=== PATIENT | female | born 1980 | race Two or more races ===

== ENCOUNTER → 2018-10-12 | Outpatient (CLI) | payer MEDICAID | END | disposition home or self-care (01) | LOC: Rad HDHVI 15:15 | PROVIDERS: ATTEND Internal Medicine | DX: I11.0 Hypertensive heart disease with heart failure (principal); I50.9 Heart failure, unspecified; Z95.810 Presence of automatic (implantable) cardiac defibrillator | CPT/HCPCS: 93306 ==

== ENCOUNTER → 2021-09-30 | Outpatient (CLI) | payer MEDICAID | END | disposition home or self-care (01) | LOC: Rad HDHVI 13:59 | PROVIDERS: ATTEND Internal Medicine | DX: I36.1 Nonrheumatic tricuspid (valve) insufficiency (principal); I11.9 Hypertensive heart disease without heart failure; E66.9 Obesity, unspecified; Z95.0 Presence of cardiac pacemaker | CPT/HCPCS: 93306 ==

== ENCOUNTER → 2022-01-05 | Outpatient (CLI) | payer MEDICAID ==
[~2022-01-05] MED LIST: APIX5TAB PO; ATOR40TA52 PO; CARV25TA55 PO; FURO40TA4 PO; GLIM2TAB33 PO; INSLANTI SC; LISI20TA28 PO; METF-929 PO
[2022-01-05 10:46] VITALS: BP 132/93
[2022-01-05 11:13] VITALS: BP 138/96
[2022-01-05 11:51] LABS: Basophils # (auto) 0 10 ^3/uL (0-0.2); Basophils % (auto) 0.3 % (0.0-2.0); Eosinophils # (auto) 0 10 ^3/uL (0-0.8); Eosinophils % (auto) 0.3 % (0.0-7.0); Hematocrit 45.9 % (36.0-46.0); Hemoglobin 15.3 g/dL (12.2-16.2); Lymphocytes # (auto) 2.7 10 ^3/uL (0.4-5.4); Lymphocytes % (auto) 29.1 % (10.0-50.0); Mean Corpuscular Hemoglobin 29.8 pg (28.0-32.0); Mean Corpuscular Hgb Conc. 33.4 g/dL (32.0-36.0); Mean Corpuscular Volume 89.1 fL (80.0-100.0); Monocytes # (auto) 0.8 10 ^3/uL (0-1.3); Monocytes % (auto) 8.7 % (0.0-12.0); Neutrophils # (auto) 5.6 10 ^3/uL (1.6-8.6); Neutrophils % (auto) 61.6 % (37.0-80.0); Nucleated Red Blood Cells % 0.1 %; Red Blood Cells 5.15 10^6/uL (4.0-5.20); Red Cell Distribution Width 21.4 % (11.8-14.3); White Blood Cell 9.1 10^3/uL (4.4-10.8)
[2022-01-05 12:09] LABS: INR 0.95 (0.9-1.15); Partial Thromboplastin Time 25.6 sec (23.6-33.0)
[2022-01-05 12:23] LABS: Potassium 4.4 mmol/L (3.5-5.1)
[2022-01-05 12:28] LABS: BUN/Creatinine Ratio 18.1; Calcium 8.6 mg/dL (8.5-10.1)
== END | disposition home or self-care (01) ==
LOC: Rad HDHVI 10:29
PROVIDERS: ATTEND Internal Medicine
DX: Z01.818 Encounter for other preprocedural examination (principal); R94.31 Abnormal electrocardiogram [ECG] [EKG]; Z45.02 Encounter for adjustment and management of automatic implantable cardiac defibrillator; I51.7 Cardiomegaly
CPT/HCPCS: 36415; 71046; 80048; 84702; 85025; 85610; 85730; 93005; G0463

== ENCOUNTER 2022-01-08 11:46 | Day surgery (SDC) | payer MEDICAID ==
[~2022-01-08] VITALS: Ht 167.6 cm; Wt 95.3 kg
[2022-01-08] MEDS ORDERED: fentaNYL CITRATE 100 MCG/2 ML VL ONE (12:56)
[2022-01-08] MEDS ORDERED: VANCOMYCIN HCL 1000 MG VL ONE (12:56)
[2022-01-08] MEDS ORDERED: MIDAZOLAM HCL 2MG/2ML 2ml VIAL (1mg/ml) ONE (12:56)
[2022-01-08] MEDS ORDERED: VANCOMYCIN 1GM/250ML 250 ML IV ONE (12:57)
[2022-01-08] MEDS ORDERED: LIDOCAINE 2%HCL (LOCAL ANESTH.) INJ 10ml MDV ONE ×2 (12:58→13:37)
[2022-01-08] MEDS ORDERED: diphenhdrAMINE HCL 50 MG/1 ML VL ONE (13:37)
== END 2022-01-08 16:02 | disposition home or self-care (01) ==
LOC: CATH 11:46
PROVIDERS: ATTEND Internal Medicine Cardiovascular Disease
DX: T82.111A Breakdown (mechanical) of cardiac pulse generator (battery), initial encounter (principal); I42.0 Dilated cardiomyopathy; I11.0 Hypertensive heart disease with heart failure; I50.9 Heart failure, unspecified; E78.5 Hyperlipidemia, unspecified; I48.91 Unspecified atrial fibrillation; E11.40 Type 2 diabetes mellitus with diabetic neuropathy, unspecified; E11.21 Type 2 diabetes mellitus with diabetic nephropathy; E11.59 Type 2 diabetes mellitus with other circulatory complications; Z86.73 Personal history of transient ischemic attack (TIA), and cerebral infarction without residual deficits; Z87.891 Personal history of nicotine dependence; Z20.822 Contact with and (suspected) exposure to COVID-19; Y83.1 Surgical operation with implant of artificial internal device as the cause of abnormal reaction of the patient, or of later complication, without mention of misadventure at the time of the procedure
CPT/HCPCS: 33263; 93005; C1882; J1200; J2001; J2250; J3010; J3370; U0003; 33249; 33264; 99152; 99153

== ENCOUNTER → 2022-11-16 | Outpatient (CLI) | payer MEDICAID | END | disposition home or self-care (01) | LOC: Rad HDHVI 14:54 | PROVIDERS: ATTEND Internal Medicine Cardiovascular Disease | DX: I08.1 Rheumatic disorders of both mitral and tricuspid valves (principal); I10 Essential (primary) hypertension; E78.5 Hyperlipidemia, unspecified | CPT/HCPCS: 93306 ==

== ENCOUNTER → 2023-05-18 | Outpatient (CLI) | payer MEDICAID ==
[~2023-05-18] MED LIST changes: -LISI20TA28 PO; +LISI20TA56 PO
== END | disposition home or self-care (01) ==
LOC: Rad HDHVI 13:13
PROVIDERS: ATTEND Internal Medicine Cardiovascular Disease
DX: I10 Essential (primary) hypertension (principal)
CPT/HCPCS: 93880